=== PATIENT | male | born 1970 | race Hispanic/Latino ===

== ENCOUNTER 2016-11-03 15:08 | Inpatient (IN) | payer MEDICAID, OTHER ==
[2016-11-03 15:48] LABS: BASO # 0.1 K/uL (0.0-0.2); BASO % 0.7 % (0.0-2.0); EOS # 0.1 K/uL (0.0-0.7); EOS % 1.5 % (0.0-4.0); HEMATOCRIT 40.2 % (35.0-51.0); LYMPH # 1.5 K/uL (1.0-4.3); LYMPH % 17.3 % (20.0-40.0); MEAN CELL VOLUME 88.6 fL (80.0-94.0); MEAN CORPUSCULAR HEMOGLOBIN 29.5 pg (27.0-31.0); MEAN CORPUSCULAR HGB CONC 33.3 g/dL (33.0-37.0); MEAN PLATELET VOLUME 6.8 fL (7.2-11.7); MONO # 0.7 K/uL (0.0-0.8); MONO % 7.8 % (0.0-10.0); WHITE BLOOD COUNT 8.9 K/uL (4.8-10.8)
[2016-11-03 15:54] LABS: URINE BILIRUBIN NEGATIVE (NEGATIVE); URINE COLOR Amber (YELLOW); URINE GLUCOSE (UA) NORMAL (Normal); URINE KETONE NEGATIVE (NEGATIVE); URINE LEUKOCYTE ESTERASE NEG Leu/uL (Negative); URINE PROTEIN NEGATIVE (NEGATIVE); URINE UROBILINOGEN NORMAL mg/dL (0.2-1.0); WBC URINE 1 /hpf (0-5)
[2016-11-03 15:56] LABS: URINE BLOOD TRACE (NEGATIVE)
[2016-11-03 15:57] LABS: CHLORIDE 101 mmol/L (98-107)
[2016-11-03 15:58] LABS: POTASSIUM 3.5 mmol/L (3.6-5.2); SODIUM 142 mmol/L (132-148)
[2016-11-03 16:01] LABS: ALB/GLOB RATIO 1.5 (1.0-2.1); ALKALINE PHOSPHATASE 73 U/L (38-126); ALT/SGPT 49 U/L (21-72); AST/SGOT 43 U/L (17-59); BILIRUBIN,TOTAL 0.7 mg/dL (0.2-1.3); BLOOD UREA NITROGEN 14 mg/dL (9-20); CALCIUM 8.8 mg/dl (8.6-10.4); CARBON DIOXIDE 27 mmol/L (22-30); GFR AFRICAN-AMERICAN > 60; GLUCOSE,RANDOM 79 mg/dL (75-110); TOTAL PROTEIN 8.2 g/dL (6.3-8.3)
[2016-11-03 16:02] LABS: ALCOHOL SERUM < 10 mg/dl (0-10)
--- NOTE | 2016-11-03 17:14 | C.PDOC ---
History Of Present Illness 46 y/o male presents to ED requesting heroin detox. Patient notes last use was today at 0100. Denies any withdrawal symptoms, suicidal ideation, homicidal ideation, or other complaints. Patient was prescreened for detox prior to arrival. Time Seen by Provider: 11/03/16 15:31 Chief Complaint (Nursing): Medical Clearance History Per: Patient History/Exam Limitations: no limitations Onset/Duration Of Symptoms: Persistent Current Symptoms Are (Timing): Still Present Recent travel outside of the [place]: No Past Medical History Reviewed: Historical Data, Nursing Documentation, Vital Signs Vital Signs: Last Vital Signs Temp 97.9 F 11/03/16 15:15 Pulse 78 11/03/16 16:48 Resp 18 11/03/16 16:48 BP 132/75 11/03/16 16:48 Pulse Ox 98 11/03/16 17:14 - Medical History PMH: No Chronic Diseases Family History: States: Unknown Family Hx - Social History Hx Alcohol Use: No Hx Substance Use: Yes - Immunization History Hx Tetanus Toxoid Vaccination: No Hx Influenza Vaccination: No Hx Pneumococcal Vaccination: No Review Of Systems Except As Marked, All Systems Reviewed And Found Negative. Constitutional: Negative for: Fever, Chills Cardiovascular: Negative for: Chest Pain, Palpitations Respiratory: Negative for: Cough Gastrointestinal: Negative for: Nausea, Vomiting Skin: Positive for: Rash (psoriasis) Psych: Negative for: Withdrawal Physical Exam - Physical Exam Appears: Non-toxic, No Acute Distress Skin: Normal Color, Warm, Dry, Rash (psoriasis in diffuse areas) Head: Atraumatic, Normacephalic Eye(s): bilateral: Normal Inspection Oral Mucosa: Moist Neck: Normal ROM Chest: Symmetrical Cardiovascular: Rhythm Regular Respiratory: Normal Breath Sounds, No Rales, No Rhonchi, No Wheezing Gastrointestinal/Abdominal: Soft, No Tenderness, No Guarding Back: Normal Inspection Extremity: Normal ROM Neurological/Psych: Oriented x3, Normal Speech ED Course And Treatment - Laboratory Results Result Diagrams: 11/03/16 15:42 11/03/16 15:42 O2 Sat by Pulse Oximetry: 98 (RA) Pulse Ox Interpretation: Normal Medical Decision Making Medical Decision Making: Plan: * Labs * Crisis evaluation * Reassess Prior Visits: Notes and results from previous visits were reviewed. Progress Notes: Labs ordered and reviewed. In my clinical judgment patient is medically cleared and stable for detox admission. cut in worker contacted for evaluation. As per CW patient is to be admitted under Dr Lowe service Disposition - Disposition Disposition: HOSPITALIZED Disposition Time: 17:28 Condition: STABLE - POA Present On Arrival: None - Clinical Impression Clinical Impression: Opiate dependence - PA / REINFORCED IRONWORKER / Resident Statement MD/DO has reviewed & agrees with the documentation as recorded. - Scribe Statement The provider has reviewed the documentation as recorded by the Scribe Dominguez Vásquez Provider Scribe Attestation: All medical record entries made by the Magdaibmago were at my direction and personally dictated by me. I have reviewed the chart and agree that the record accurately reflects my personal performance of the history, physical exam, medical decision making, and the department course for this patient. I have also personally directed, reviewed, and agree with the discharge instructions and disposition. Decision To Admit - Pt Status Changed To: Hospital Disposition Of: Inpatient - Admit Certification Admit to Inpatient:: After my assessment, the patient will require hospitalization for at least two midnights. This is because of the severity of symptoms shown, intensity of services needed, and/or the medical risk in this patient being treated as an outpatient. - InPatient: Physician Admission Certification: I certify that this patient requires 2 or more midnights of care for the following reason:: patient with severe opiate use disorder and dependence - . Bed Request Type: Detox Admitting Physician: Tahira Lowe Patient Diagnosis: Opiate dependence
[2016-11-04] MEDS ORDERED: Buprenorphine Hydrochloride 2 mg SL ONE ×3 (07:54→17:00)
[2016-11-04] MEDS ORDERED: Aluminum Hydroxide/Magnesium Hydroxide Susp (30 mL) PO PRN (13:42)
--- NOTE | 2016-11-04 22:14 | PCM.PSYCH ---
Initial Psychiatric Evaluation - Initial Psychiatric Evaluation Type of Admission: Voluntary Legal Status: Capacity Chief Complaint (in patient's own words): "Heroin" History of Present Illness and Precipitating Events: The patient is seen, chart reviewed and case discussed. This is a 46-year-old male, single with no child, later, lives with parents in [place]. The patient reports using 10-20 bags of intranasal heroin for the past 23 years. No other drugs. Longest sobriety was 3 years. This is his third detox and he was in rehabilitation 1 time. Last use was yesterday and he has some withdrawal symptoms already. Past psych history: Denies Medical history: "Mild seriousness" Family psych history: Denies Legal history: Denies Current Medications: Active Medications Generic Name Dose Route Start Last Admin Trade Name Freq PRN Reason Stop Dose Admin Al Hydrox/Mg Hydrox/Simethicone 30 ml 11/04/16 13:42 Maalox 30 Ml PO TID PRN Indigestion / Heartburn Buprenorphine HCl 0 mg 11/05/16 10:00 Subutex SL 11/09/16 09:59 .TAPER LAKSHMI Taper Hydroxyzine HCl 25 mg 11/04/16 10:44 11/04/16 21:08 Atarax PO 25 mg Q8 PRN Administration Anxiety Loperamide HCl 2 mg 11/04/16 13:42 Imodium PO Q8 PRN Diarrhea Ondansetron HCl 4 mg 11/04/16 13:42 Zofran Tab PO Q8 PRN Nausea/Vomiting Pneumococcal Polyvalent Vaccine 0.5 ml 11/06/16 10:00 Pneumovax 23 Vaccine IM 11/06/16 10:01 .ONCE ONE Trazodone HCl 50 mg 11/03/16 22:00 11/04/16 21:07 Desyrel PO 50 mg HS PRN Administration Insomnia Past Psychiatric History - Past Psychiatric History Previous Treatment History: None Pertinent Medical Hx (Current Medical&Sleep Prob, Allergies): Allergies Allergy/AdvReac Type Severity Reaction Status Date / Time aspirin Allergy Verified 11/03/16 15:19 No Known Home Med 11/03/16 Review of Systems - Neurological Neurological: UNREMARKABLE - Psychiatric Psychiatric: Abnormal Sleep Pattern, Anxiety. absent: Hallucinations, Homicidal Ideation, Paranoia, Suicidal Ideation Mental Status Examination - Personal Presentation Personal Presentation: Looks stated age - Affect Affect: Constricted - Motor Activity Motor Activity: Calm - Reliability in Providing Information Reliability in Providing Information: Good - Speech Speech: Organized - Mood Mood: Anxious - Formal Thought Process Formal Thought Process: No Impairment - Cognitive Functions Orientation: Person, Place, Situation, Time Sensorium: Alert Attention/Concentration: Attentive Estimate of Intelligence: Average Judgement: Intact, as evidence by: Good judgement, Intact, as evidence by: Insight regarding need for hospitalization Memory: Recent intact, as evidence by: Ability to recall events of the day, Remote intact, as evidenced by: Abilit to recall sig. life events - Risk Risk: Withdrawal, Diminished functioning - Strength & Assets Inventory Strength & Assets Inventory: Family support, Cooperative DSM 5 DX - DSM 5 DSM 5 Diagnosis: Opioid withdrawal Opioid use disorder, severe - Recommended/Plan of Treatment Treatment Recommendations and Plan of Treatment: Subutex detox As needed medications Attend groups and activities Support and psychoeducation [place] and CBT Refer to IOP and consider MAT 32 minutes Projected ELOS: 4 days Prognosis: Good with treatment Discharge Plan and Discharge Criteria: No withdrawals Refer to IOP and MAT - Smoking Cessation Smoking Cessation Initiated: Yes
[2016-11-05] MEDS: Buprenorphine Hydrochloride 2 mg SL SCH ×2 (09:15→21:28)
--- NOTE | 2016-11-05 13:50 | PCM.PYCHPN ---
Psychiatric Progress Note - Psychiatric Progress Note Patient seen today, length of contact: 20 min Patient Chief Complaint: "Have not been sleeping well" Problems Identified/Issues Discussed: The pt is seen, chart reviewed, case discussed with staff. Patient has a positive mood today. He complains that he has not been able to sleep for the past two days. He admits to back pain and body aches. Currently, denies suicidal thoughts of hurting himself or others. He denies any visual or auditory hallucinations. His plan is to enter an outpatient center in [place]. After care discussed, support and psychoeducation given. Medical Problems: "Mild seriousness" Medication Change: Yes (Quetiapine Fumarate, Clonidine HCl, Subutex ) Medical Record Reviewed: Yes Mental Status Examination - Cognitive Function Orientation: Person, Place, Situation, Time Memory: Intact Attention: WNL Concentration: WNL Association: WNL Fund of Knowledge: WNL - Mood Mood: Anxious - Affect Affect: Broad - Speech Speech: Appropriate - Formal Thought Process Formal Thought Process: No Impairment - Suicidal Ideation Suicidal Ideation: No - Homicidal Ideation Homicidal Ideation: No Goal/Treatment Plan - Goal/Treatment Plan Need for Continued Stay: Remain at risks for inpatient hospitalization, Discharge may exacerbated symptoms Progress Toward Problem(s) and Goals/Treatment Plan: Subutex detox As needed medications Attend groups and activities Support and psychoeducation [place] and CBT Refer to IOP and consider MAT Estimated Date of D/C: 11/07/16 - Smoking Cessation Smoking Cessation Initiated: No
[2016-11-05] MEDS ORDERED: Buprenorphine Hydrochloride 2 mg SL ONE (21:00)
[2016-11-06] MEDS: Buprenorphine Hydrochloride 2 mg SL SCH ×2 (09:44→22:45)
[2016-11-06] MEDS ORDERED: Pneumococcal 23-Valent Vaccine IM ONE (10:00)
--- NOTE | 2016-11-06 15:24 | PCM.PYCHPN ---
Psychiatric Progress Note - Psychiatric Progress Note Patient seen today, length of contact: 16 min Patient Chief Complaint: "I'm better" Problems Identified/Issues Discussed: The pt is seen, chart reviewed, case discussed with staff. Patient's mood is positive today. He slept well the night before. He states that there are currently no other issues. His plan after treatment is to attend an outpatient program. After care discussed, support and psychoeduation given. Medical Problems: "Mild seriousness" Medication Change: Yes (Subutex taper) Medical Record Reviewed: Yes Mental Status Examination - Cognitive Function Orientation: Person, Place, Situation, Time Memory: Intact Attention: WNL Concentration: WNL Association: WNL Fund of Knowledge: WNL - Mood Mood: Anxious - Affect Affect: Broad - Speech Speech: Appropriate - Formal Thought Process Formal Thought Process: No Impairment - Suicidal Ideation Suicidal Ideation: No - Homicidal Ideation Homicidal Ideation: No Goal/Treatment Plan - Goal/Treatment Plan Need for Continued Stay: Remain at risks for inpatient hospitalization, Discharge may exacerbated symptoms Progress Toward Problem(s) and Goals/Treatment Plan: Subutex detox As needed medications Attend groups and activities Support and psychoeducation [place] and CBT Refer to [facility] Estimated Date of D/C: 11/09/16 - Smoking Cessation Smoking Cessation Initiated: No
[2016-11-07] MEDS: Buprenorphine Hydrochloride 2 mg SL SCH ×2 (09:33→21:09)
--- NOTE | 2016-11-07 12:24 | PCM.PYCHPN ---
Psychiatric Progress Note - Psychiatric Progress Note Patient seen today, length of contact: 16 min Patient Chief Complaint: My sleep is getting better Problems Identified/Issues Discussed: Patient seen and evaluated, chart reviewed and discussed with the nurse. The patient reports improvement in his mood and anxiety. Patient reports improvement in his withdrawal symptoms however he still reports some what anxiety and sweating. Patient reports improvement in his sleep and appetite and denies any suicidal ideation or homicidal ideation. Patient is taking medications and denies any side effects. Supportive therapy and psychoeducation were given. Medication Change: Yes (Subutex taper) Medical Record Reviewed: Yes Mental Status Examination - Cognitive Function Orientation: Person, Place, Situation, Time Memory: Intact Attention: WNL Concentration: WNL Association: WNL Fund of Knowledge: WNL - Mood Mood: Anxious - Affect Affect: Broad - Speech Speech: Appropriate - Formal Thought Process Formal Thought Process: No Impairment - Suicidal Ideation Suicidal Ideation: No - Homicidal Ideation Homicidal Ideation: No Goal/Treatment Plan - Goal/Treatment Plan Need for Continued Stay: Remain at risks for inpatient hospitalization, Discharge may exacerbated symptoms Progress Toward Problem(s) and Goals/Treatment Plan: Opioid withdrawal Opioid use disorder, severe Subutex detox As needed medications Attend groups and activities Support and psychoeducation [place] and CBT Refer to IOP and consider MAT Trazodone 50 mg Seroquel 100 mg by mouth daily at bedtime Estimated Date of D/C: 11/09/16 - Smoking Cessation Smoking Cessation Initiated: No
[2016-11-08] MEDS: Buprenorphine Hydrochloride 2 mg SL SCH ×2 (09:21→21:58)
--- NOTE | 2016-11-08 12:03 | PCM.PYCHPN ---
Psychiatric Progress Note - Psychiatric Progress Note Patient seen today, length of contact: 15 min Patient Chief Complaint: I am feeling better Problems Identified/Issues Discussed: Patient seen and evaluated, chart reviewed and discussed with the nurse. Today patient reports improvement in his mood and improvement in the withdrawal symptoms. Patient reports improvement in his sleep and appetite and denies any suicidal ideation or homicidal ideation. Patient is taking medications and denies any side effects. Supportive therapy and psychoeducation were given. Medication Change: Yes (Subutex taper) Medical Record Reviewed: Yes Mental Status Examination - Cognitive Function Orientation: Person, Place, Situation, Time Memory: Intact Attention: WNL Concentration: WNL Association: WNL Fund of Knowledge: WNL - Mood Mood: Anxious - Affect Affect: Broad - Speech Speech: Appropriate - Formal Thought Process Formal Thought Process: No Impairment - Suicidal Ideation Suicidal Ideation: No - Homicidal Ideation Homicidal Ideation: No Goal/Treatment Plan - Goal/Treatment Plan Need for Continued Stay: Remain at risks for inpatient hospitalization, Discharge may exacerbated symptoms Progress Toward Problem(s) and Goals/Treatment Plan: Opioid withdrawal Opioid use disorder, severe Subutex detox As needed medications Attend groups and activities Support and psychoeducation [place] and CBT Refer to IOP and consider MAT Trazodone 50 mg Seroquel 100 mg by mouth daily at bedtime Estimated Date of D/C: 11/09/16 - Smoking Cessation Smoking Cessation Initiated: No
[2016-11-08 20:38] VITALS: RESP 18
--- NOTE | 2016-11-09 08:40 | PCM.PYCHDC ---
Mental Status Examination - Mental Status Examination Orientation: Person, Place, Situation, Time Memory: Intact Mood: Anxious Affect: Constricted Speech: Appropriate Attention: WNL Concentration: WNL Association: WNL Fund of Knowledge: WNL Formal Thought Process: No Impairment Suicidal Ideation: No Current Homicidal Ideation?: No Discharge Summary - Discharge Note Reason for Hospitalization: Heroin detox Consultations:: List each consultation separately and include: 1. Reason for request. 2. Findings. 3. Follow-up Summary of Hospital Course include:: 1. Description of specific treatment plan utilized for patients during their course of treatmen. 2. Summarize the time- course for resolution of acute symptoms and/or regressed behaviors. 3. Describe issues identified and worked on during hospitalization. 4. Describe medication utilized. 5. Describe medical problems identified and treated. 6. Reassessment of suicide risk Summary of Hospital Course: The patient is seen, chart reviewed and case discussed. On admission: This is a 46-year-old male, single with no child, lives with parents in [place]. The patient reports using 10-20 bags of intranasal heroin for the past 23 years. No other drugs. Longest sobriety was 3 years. This is his third detox and he was in rehabilitation 1 time. Last use was yesterday and he has some withdrawal symptoms already. Past psych history: Denies Medical history: "Mild seriousness" Family psych history: Denies Legal history: Denies Hospital course: The pt was admitted and started on treatment with psychotherapy, support, psychoeducation and medications. [place] and CBT used. The pt attended groups and activities, as well as milieu therapy. All the risks and benefits of medications are discussed and the patient understood and agreed. After care discussed with the patient. - Final Diagnosis (DSM 5) Condition upon Discharge: STABLE DSM 5: OPioid withdrawal Opioid use d/o - severe Disposition: HOME/ ROUTINE Follow-up Treatment Plan: Continue below medications after discharge. Follow after care plan as discussed: [facility] IOP Use relapse prevention skills Return to ER or call 911 if suicidal, homicidal or symptoms relapse. Stay away from stress, alcohol and drugs. Prescriptions/Medication Reconciliation: traZODone [Desyrel] 50 mg PO HS PRN #30 tab PRN Reason: Insomnia QUEtiapine [Seroquel] 100 mg PO HS #30 tab - Smoking Cessation Smoking Cessation Medication prescribed: No - Antipsychotic Medications Pt discharged on 2 or more routine antipsychotic medications: No
[2016-11-09 08:41] VITALS: BP 111/76; PULSE 99; TEMP 97.6; O2SAT 96
[2016-11-09] MEDS ORDERED: Buprenorphine Hydrochloride 2 mg SL ONE (09:00)
== END 2016-11-09 09:35 | disposition home or self-care (01) | DRG 745 ==
LOC: C.ER 15:08 → C.7D 17:26
PROVIDERS: ADMIT Psychiatry & Neurology Psychiatry; ATTEND Psychiatry & Neurology Psychiatry
PROC: HZ2ZZZZ Detoxification Services for Substance Abuse Treatment (ICD-10-PCS; principal; 2016-11-03)
PROC: GZ56ZZZ Individual Psychotherapy, Supportive (ICD-10-PCS; 2016-11-03)
DX: F11.23 Opioid dependence with withdrawal (principal); F41.9 Anxiety disorder, unspecified

== ENCOUNTER 2017-02-15 14:47 | Emergency (ER) | payer MEDICAID ==
[2017-02-15 15:00] VITALS: BP 135/85; PULSE 85; RESP 16; TEMP 97.9; O2SAT 98
--- NOTE | 2017-02-15 15:36 | C.PDOC ---
History Of Present Illness 46 yr old male presents to the ER with new onset of left knee pain worsening for the past 3 weeks. Patient states he climbs and walks a lot. Reports of pain to the front of the knee, made worse with climbing or going down the stairs and straightening of the leg. Patient denies trauma, redness, swelling, leg pain, foot pain, weakness or numbness. NEW ONSET L KNEE PAIN WORSENING X 3 WEEKS. PS CLIMBS AND WALKS ALOT. NO TRAUMA. PAIN FRONT OF KNEE WORSE W CLIMBING OR GOING DOWN STAIRS, STRAIGHTENING LEG. NO REDNESS, SWELL. LIMITED RELIEF W MOTRIN, ICE EXAM MILD DIST NNTOXIC EXT LLE NO DEFORM, SWELL. +TEND PATELLA TENDON AREA. +PAIN W KNEE EXTENSION. NO QUAD HEAD TEND. NO KNEE SUBLUX SKIN NEG MDM KNEE IMMOBILIZER, PAIN MEDS, REST, ICE. ADVISED NEED FOR ORTHO FU Time Seen by Provider: 02/15/17 15:27 Chief Complaint (Nursing): Lower Extremity Problem/Injury History Per: Patient History/Exam Limitations: no limitations Onset/Duration Of Symptoms: Days (3 weeks) Current Symptoms Are (Timing): Still Present Recent travel outside of the [place]: No Past Medical History Reviewed: Historical Data, Nursing Documentation, Vital Signs Vital Signs: Last Vital Signs Temp 97.9 F 02/15/17 14:59 Pulse 85 02/15/17 14:59 Resp 16 02/15/17 14:59 BP 135/85 02/15/17 14:59 Pulse Ox 98 02/15/17 15:57 - [facility] Procedures DETOXIFICATION SERVICES FOR SUBSTANCE ABUSE TREATMENT (11/03/16) INDIVIDUAL PSYCHOTHERAPY, SUPPORTIVE (11/03/16) Family History: States: No Known Family Hx - Social History Hx Alcohol Use: No Hx Substance Use: Yes (Heroin) - Immunization History Hx Tetanus Toxoid Vaccination: No Hx Influenza Vaccination: No Hx Pneumococcal Vaccination: No Review Of Systems Except As Marked, All Systems Reviewed And Found Negative. Musculoskeletal: Positive for: Other ((+) Left knee pain ). Negative for: Leg Pain, Foot Pain Neurological: Negative for: Weakness, Numbness Physical Exam - Physical Exam Appears: Non-toxic, In Acute Distress (Mild) Skin: Warm, Dry Head: Atraumatic, Normacephalic Extremity: Tenderness (LLE, patella tendon area. ), No Deformity, No Swelling, Other (LLE - Pain with knee extension. No quad head tenderness. No knee sublux. ) Neurological/Psych: Oriented x3, Normal Speech, Normal Motor ED Course And Treatment O2 Sat by Pulse Oximetry: 98 Medical Decision Making Medical Decision Making: PLAN: * Percocet PO Disposition Counseled Patient/Family Regarding: Diagnosis, Need For Followup, Rx Given - Disposition Referrals: Ernesto Cummings III, MD [Staff Provider] - [facility] [Outside] [facility] [Outside] Disposition: HOME/ ROUTINE Disposition Time: 15:55 Condition: IMPROVED Additional Instructions: Treatments and drugs Doctors typically begin with less invasive treatments before considering other options, such as surgery. Medications Pain relievers such as ibuprofen (Advil, Motrin IB, others) or naproxen sodium ( Aleve, others) may provide short-term relief from pain associated with patellar tendinitis. Therapy A variety of physical therapy techniques can help reduce the symptoms associated with patellar tendinitis, including: Stretching exercises. Regular, steady stretching exercises can reduce muscle spasm and help lengthen the muscle-tendon unit. Don't bounce during your stretch. Strengthening exercises. Weak thigh muscles contribute to the strain on your patellar tendon. Exercises that involve lowering your leg very slowly after extending it are particularly helpful. Patellar tendon strap. A strap that applies pressure to your patellar tendon can help to distribute force away from the tendon and direct it through the strap instead. This may help relieve pain. Iontophoresis. This therapy involves spreading a corticosteroid medicine on your skin and then using a device that delivers a low electrical charge to push the medication through your skin. Surgical and other procedures If conservative treatments don't help, your doctor may suggest other therapies, such as: Corticosteroid injection. An ultrasound-guided corticosteroid injection into the sheath around the patellar tendon may help relieve pain. But these types of drugs can also weaken tendons and make them more likely to rupture. Platelet-rich plasma injection. This type of injection has been tried in some people with chronic patellar tendon problems. Studies are ongoing. It is hoped the injections might promote new tissue formation and help heal tendon damage. Surgery. In rare cases, if other treatments fail, your doctor might suggest surgical repair of the patellar tendon. Some procedures can be done through small incisions around your knee. Prescriptions: Naproxen 500 mg PO BID #30 tab oxyCODONE/Acetaminophen [Percocet 5/325 mg Tab] 1 ea PO QID #8 tab Instructions: Patellar Tendinitis (ED), Knee Immobilizer (ED) Forms: Work Excuse - Clinical Impression Clinical Impression: Patellar tendinitis - Scribe Statement The provider has reviewed the documentation as recorded by the Scribe Alexa Wills Provider Attestation: All medical record entries made by the Scribe were at my direction and personally dictated by me. I have reviewed the chart and agree that the record accurately reflects my personal performance of the history, physical exam, medical decision making, and the department course for this patient. I have also personally directed, reviewed, and agree with the discharge instructions and disposition. Orthopedic Care Application Of:: Knee Immobilizer
[2017-02-15] MEDS ORDERED: Oxycodone/Acetaminophen 5/325 mg Tab PO STA (15:57)
[2017-02-15] MEDS ORDERED: Oxycodone/Acetaminophen 5/325 mg Tab ONE (16:02)
== END 2017-02-15 16:25 | disposition home or self-care (01) ==
LOC: C.ER 14:47
DX: M76.52 Patellar tendinitis, left knee (principal)